=== PATIENT | female | born 2000 | race Caucasian/White ===

== ENCOUNTER → 2024-04-19 | Outpatient (REF) | LOC: M EMP 08:02 | PROVIDERS: ATTEND Family Medicine | DX: Z11.52 Encounter for screening for COVID-19 (principal) ==

== ENCOUNTER → 2025-04-03 | Outpatient (CLI) | payer OTHER | LOC: M RAD 11:12 | PROVIDERS: ATTEND Student in an Organized Health Care Education/Training Program | DX: M25.551 Pain in right hip (principal) ==

== ENCOUNTER → 2025-05-01 | Outpatient (CLI) | payer OTHER | LOC: M RAD 08:08 | PROVIDERS: ATTEND Student in an Organized Health Care Education/Training Program | DX: M25.551 Pain in right hip (principal) ==